=== PATIENT | female | born 1985 | race American Indian/Alaskan Native ===

== ENCOUNTER 2017-02-06 18:58 | Emergency (ER) | payer SELFPAY ==
[~2017-02-06] VITALS: Ht 170.2 cm; Wt 98.3 kg
[~2017-02-06 18:58] MED LIST: AMOX-291 PO; DOCU-30 PO; GLYB5TAB3 PO; HYDR-3240 PO; METF850T PO; OXYC5TAB3 PO
[2017-02-06 19:00] VITALS: BP 149/100
== END 2017-02-06 19:52 | disposition home or self-care (01) ==
LOC: ED 19:36
DX: K02.9 Dental caries, unspecified (principal); K05.10 Chronic gingivitis, plaque induced; E11.9 Type 2 diabetes mellitus without complications
CPT/HCPCS: 99283

== ENCOUNTER 2019-05-20 01:09 | Emergency (ER) | payer MEDICAID ==
[~2019-05-20] VITALS: Ht 167.6 cm; Wt 104.5 kg
[~2019-05-20 01:09] MED LIST changes: +DOCU-131 PO; -DOCU-30 PO
--- NOTE | 2019-05-20 01:38 | NUR ---
TASK RN: FIRST CONTACT WITH PT. PT ALERT/AWAKE, NAD NOTED. PWD. PT CO BLE EDEMA X ONE MONTH. +3 PITTING EDEMA, NOT WEEPING; NO REDNESS/WARMTH/DRAINAGE NOTED. NO OPEN WOUNDS NOTED. STRONG, EQUAL PEDAL PULSES DETECTED BY DOPPLER. PT DENIES CP/SOB/ORTHOPNEA/PRODUCTIVE COUGH/FEVER. ERP AT BEDSIDE FOR INITIAL EVAL.
--- NOTE | 2019-05-20 01:43 | NUR ---
REPORT TO MIKEL HANEY
--- NOTE | 2019-05-20 01:47 | NUR ---
RECEIVED BS REPORT FROM SARAH RN(BREAK RN) TO ASSUME PT. CARE. PT. DENIES NEEDS. CALL LIGHT IN REACH. FAMILY AT BS FOR SUPPORT.
[2019-05-20 02:02] LABS: BASOPHILS # (AUTO) 0.04 x10^3/uL (0-0.1); BASOPHILS % (AUTO) 1 % (0-1); EOSINOPHILS % (AUTO) 3 % (1-7); LYMPHOCYTES % (AUTO) 41 % (22-44); MD NO; MEAN CORPUSCULAR HEMOGLOBIN 29.1 pg (27.0-34.8); MEAN CORPUSCULAR HGB CONC 33.3 g/dL (32.4-35.8); MEAN CORPUSCULAR VOLUME 87.3 fL (80-100); MEAN PLATELET VOLUME 7.2 fL (7.4-10.4); MONOCYTES # (AUTO) 0.42 x10^3/uL (0.2-0.8); MONOCYTES % (AUTO) 5 % (2-9); NEUTROPHILS # (AUTO) 4.02 x10^3/uL (1.8-6.8); NEUTROPHILS % (AUTO) 51 % (42-75); PLATELET COUNT 323 x10^3/uL (130-400); RED BLOOD COUNT 4.48 x10^6/uL (3.82-5.3); RED CELL DISTRIBUTION WIDTH 13.3 % (9.6-15.2)
[2019-05-20 02:15] LABS: ALANINE AMINOTRANSFERASE 23 U/L (12-78); ALBUMIN 2.9 g/dL (3.4-5.0); ANION GAP 7 mmol/L (5-15); CALCIUM 8.3 mg/dL (8.5-10.1); CHLORIDE 107 mmol/L (98-107); CREATININE 0.74 mg/dL (0.55-1.02)
[2019-05-20 02:19] LABS: ALKALINE PHOSPHATASE 88 U/L (45-117); BILIRUBIN,TOTAL 0.3 mg/dL (0.2-1.0); TOTAL PROTEIN 7.1 g/dL (6.4-8.2)
[2019-05-20 02:24] LABS: HEMOGLOBIN A1C 8.4 % (4.2-6.3)
[2019-05-20 02:41] VITALS: BP 127/67
== END 2019-05-20 02:52 | disposition home or self-care (01) ==
LOC: ED 02:46
DX: E88.09 Other disorders of plasma-protein metabolism, not elsewhere classified (principal); R60.0 Localized edema; E11.65 Type 2 diabetes mellitus with hyperglycemia
CPT/HCPCS: 36415; 80053; 83036; 83880; 85025; 93970; 99284

== ENCOUNTER 2019-11-30 19:19 | Emergency (ER) | payer MEDICAID ==
[~2019-11-30] VITALS: Ht 167.6 cm; Wt 91.0 kg
[2019-11-30 19:20] VITALS: BP 125/78
[2019-11-30] MEDS ORDERED: IBUPROFEN 800 MG TABLET PO ONE (19:50)
[2019-11-30] MEDS ORDERED: AMOXICILLIN/CLAV 875-125MG TABLET PO ONE (19:50)
[2019-11-30] MEDS ORDERED: IBUPROFEN 800 MG TABLET ONE (19:59)
[2019-11-30] MEDS ORDERED: AMOXICILLIN/CLAV 875-125MG TABLET ONE (20:00)
== END 2019-11-30 20:33 | disposition home or self-care (01) ==
LOC: ED 20:10
DX: J02.0 Streptococcal pharyngitis (principal); E11.9 Type 2 diabetes mellitus without complications
CPT/HCPCS: 99283

== ENCOUNTER 2019-12-21 06:40 | Emergency (ER) | payer MEDICAID ==
[~2019-12-21] VITALS: Ht 170.2 cm; Wt 89.6 kg
--- NOTE | 2019-12-21 07:16 | NUR ---
THIS IS A 34 YO F W/ C/O SORE THROAT AND INTERMITTENT FEVERS "FOR WEEKS". PT STATES SHE WAS SEEN HERE A FEW WEEKS AGO AND DX W/ STREP (DENIES SWAB). GIVEN ABX AND NAPROXEN, TOOK FULL COURSE W/ NO RELIEF OF SYMPTOMS. ANTERIOR BASE OF THROAT IS SWOLLEN. PT REPORTS DIFFICULTY SWALLOWING SOLIDS AND LIQUIDS. PT CONVERSING IN FULL SENTENCES W/O DIFFICULTY. PT IS TACHYCARDIC W/ ALL OTHER VS WDL. NADN. SUMIT IN ROOM FOR EVAL. THROAT SWAB COMPLETED. AWAITING FURTHER ORDERS.
[2019-12-21 07:46] LABS: BASOPHILS # (AUTO) 0.07 x10^3/uL (0-0.1); BASOPHILS % (AUTO) 1 % (0-1); EOSINOPHILS # (AUTO) 0.11 x10^3/uL (0-0.4); EOSINOPHILS % (AUTO) 1 % (1-7); LYMPHOCYTES # (AUTO) 2.69 x10^3/uL (1-3.4); LYMPHOCYTES % (AUTO) 35 % (22-44); MD NO; MEAN CORPUSCULAR HEMOGLOBIN 27.7 pg (27.0-34.8); MEAN CORPUSCULAR HGB CONC 33.3 g/dL (32.4-35.8); MEAN CORPUSCULAR VOLUME 82.9 fL (80-100); MEAN PLATELET VOLUME 7.5 fL (7.4-10.4); MONOCYTES # (AUTO) 0.49 x10^3/uL (0.2-0.8); MONOCYTES % (AUTO) 6 % (2-9); NEUTROPHILS # (AUTO) 4.27 x10^3/uL (1.8-6.8); NEUTROPHILS % (AUTO) 56 % (42-75); PLATELET COUNT 321 x10^3/uL (130-400); RED BLOOD COUNT 5.03 x10^6/uL (3.82-5.3); RED CELL DISTRIBUTION WIDTH 13.6 % (9.6-15.2)
[2019-12-21 07:55] LABS: ALBUMIN 2.8 g/dL (3.4-5.0); ANION GAP 7 mmol/L (5-15); CALCIUM 8.8 mg/dL (8.5-10.1); CHLORIDE 105 mmol/L (98-107)
[2019-12-21 08:07] LABS: FREE T4 (FREE THYROXINE) 3.71 ng/dL (0.76-1.46)
[2019-12-21] MEDS ORDERED: HYDROCORTISONE 100 MG INJ. IVPush SCH ×2 (08:30→10:00)
[2019-12-21] MEDS ORDERED: HYDROCORTISONE 100 MG INJ. ONE (08:38)
--- NOTE | 2019-12-21 08:39 | NUR ---
dr alicea spoke with r
--- NOTE | 2019-12-21 08:42 | NUR ---
MEDS REQUESTED FROM PHARMACY.
[2019-12-21] MEDS ORDERED: PROPYLTHIOURACIL 50 MG TABLET PO SCH (09:00)
[2019-12-21] MEDS ORDERED: PROPRANOLOL 1 MG/ML, 1ML IVPush ONE (09:15)
--- NOTE | 2019-12-21 09:23 | NUR ---
TELEPHONE CALL TO PHARMACY REGARDING NOT SENDING THE RIGHT DOSE OF PTU. ONLY RECEIVED 1 TAB 50MG. NEED 200MG. PHARMACY REQ TO SEND BACK PTU AND WILL RESEND RIGHT DOSE.
--- NOTE | 2019-12-21 09:28 | NUR ---
CALL RECEIVED FROM PHARMACY. OUT OF STOCK OF POTASSIUM IODINE. PHARMACIST REPORTS CALLING [facility] AND NO ONE HAS IT SO IT WILL HAVE TO BE ORDRED. NOTIFIED.
[2019-12-21] MEDS ORDERED: ACETAMINOPHEN 325 MG TABLET PO PRN (10:00)
[2019-12-21] MEDS ORDERED: ONDANSETRON ODT 4 MG PO PRN (10:00)
[2019-12-21] MEDS ORDERED: DOCUSATE 100 MG CAPSULE PO PRN (10:00)
[2019-12-21] MEDS ORDERED: ONDANSETRON 2MG/ML, 2ML IVPush PRN (10:00)
[2019-12-21] MEDS ORDERED: POLYETHYLENE GLYCOL 17 GM PACKET PO PRN (10:00)
[2019-12-21] MEDS ORDERED: PROPRANOLOL 40 MG TABLET PO SCH (10:00)
[2019-12-21] MEDS ORDERED: ENOXAPARIN 30 MG/0.3 ML SQ SCH (10:00)
[2019-12-21 10:01] VITALS: BP 107/64
--- NOTE | 2019-12-21 10:01 | NUR ---
PTU GIVEN PER AND ADMITTING PROVIDER.
[2019-12-21] MEDS ORDERED: POTASSIUM IODIDE ORAL.SOLN 1 GM/ML PO ONE (10:30)
--- NOTE | 2019-12-21 10:42 | NUR ---
DIET TRAY ORDERED.
[2019-12-21] MEDS ORDERED: INSULIN LISPRO 100 UNITS/ML, PEN SQ-INSULIN SCH (11:00)
[2019-12-21] MEDS ORDERED: CHOLESTYRAMINE LIGHT 4GM PACKET PO SCH (11:00)
[2019-12-21 11:03] LABS: ALBUMIN 2.8 g/dL (3.4-5.0); BILIRUBIN, DIRECT 0.2 mg/dL (0.1-0.2)
[2019-12-21 11:05] LABS: BILIRUBIN,INDIRECT 0.4 mg/dL (0.0-2.0); BILIRUBIN,TOTAL 0.6 mg/dL (0.2-1.0); TOTAL PROTEIN 7.1 g/dL (6.4-8.2)
--- NOTE | 2019-12-21 12:26 | NUR ---
PAGED REGARD MEDS.
[2019-12-21] MEDS ORDERED: ENOXAPARIN 40 MG/0.4 ML ONE (12:28)
--- NOTE | 2019-12-21 12:30 | NUR ---
MED ZHANE FROM PHARMACY.
--- NOTE | 2019-12-21 12:48 | NUR ---
TELEPHONE CALL FROM REGARDING METHIMAZOLE. CONFIRMED TO BE GIVEN ORDERED.
--- NOTE | 2019-12-21 12:59 | NUR ---
PT MEDICATED PER EMAR.
--- NOTE | 2019-12-21 13:33 | NUR ---
PT EATING FOOD FROM HOME W/ FAMILY AT BEDSIDE. CALL LIGHT IN REACH. DENIES FURTHER NEEDS AT THIS TIME.
--- NOTE | 2019-12-21 13:43 | NUR ---
PT REQUESTING TO LEAVE. DISCUSSED WITH PT THAT SHE HAS A POTENTIAL LIFE TREATENING CONDITION AND IT IS IN HER BEST INTEREST TO STAY AND BE TREATED. PT NOT WANTING TO STAY. "I UNDERSTAND. I WANT TO LEAVE AND GO TO [place]" WHEN ASKED WHY. PT REPLIES "THEY SAID I WOULD BE ADMITTED AND I HAVENT BEEN MOVED" DISCUSSED THAT THERE IS NOT AN AVAILABLE ROOM AT THIS TIME AND SHE WILL BE MOVED SOON POSSIBLE. THAT SHE IS BEING TREATED AND RECEIVING MEDICATIONS/TREATMENTS ORDERED. ALSO DISCUSSED THAT TO GO SOMEWHERE ELSE, SHE WILL BE STARTING ALL OVER. PT VERBALIZED UNDERSTANDING, "CAN YOU TAKE THIS OUT" REFERRING TO IV. WAQAS MORIN PHONED ADMITTING MD TO NOTIFY OF PT LEAVING.
--- NOTE | 2019-12-21 13:48 | NUR ---
PT SIGNED AMA FORM. INFORMED OF CONSEQUENCES OF LEAVING AT THIS TIME. STRONGLY ADVISED TO STAY OR TO FOLLOW UP W/ CARE IMMEDIATELY. PT VERBALIZED UNDERSTANDING OF RISKS. STATES SHE MIGHT FOLLOW UP W/ GREG. PT AMBULATED W/ A STEADY GAIT. LEFT W/ FRIEND.
== END 2019-12-21 13:53 | disposition left against medical advice (07) ==
LOC: ED 09:00 → EDIP 09:54 → UNDOADMOB 09:54
DX: E05.81 Other thyrotoxicosis with thyrotoxic crisis or storm (principal); E11.9 Type 2 diabetes mellitus without complications
CPT/HCPCS: 36415; 71046; 80048; 80076; 82040; 84439; 84443; 84481; 84703; 85025; 86376; 86800; 87081; 87147; 87880; 93005; 96372; 96374; 96375; 99291; J1650; J1720; J1800

== ENCOUNTER 2020-06-11 22:08 | Emergency (ER) | payer SELFPAY ==
[~2020-06-11] VITALS: Ht 167.6 cm; Wt 80.8 kg
[2020-06-11] MEDS ORDERED: SODIUM CHLORIDE FLUSH 10ML SYR IVF ONE (22:30)
[2020-06-11] MEDS ORDERED: LORazepam 2 MG/ML, 1ML IVPush ONE (22:30)
[2020-06-11] MEDS ORDERED: SODIUM CHLORIDE 0.9% 1,000ML IVBOLUS ONE (22:30)
--- NOTE | 2020-06-11 22:30 | NUR ---
THIS IS A 34Y F THAT COMES IN TONIGHT WITH C/O THYROID PROBLEMS. PT STS SHE WAS SUPPOSED TO START IODINE THERAPY BUT HAS NOT MADE IT TO HER APTS. PT STS SHE HAS NOT TAKEN MEDS IN ABOUT 2 MONTHS. TODAY PT PRESENTS TO ER WITH HR IN 130'S REPORTS DIFFICULTY SWALLOWING BUT IS MAINTAINING OWN AIRWAY AND MANAGING SECRETIONS PT ABLE TO SPEAK IN FULL SENTENCES. CONNECTED TO MONITORING VSS NADN. CALL LIGHT IN REACH SPOUSE AT BEDSIDE
--- NOTE | 2020-06-11 22:33 | NUR ---
PIV STARTED, BLOOD SAMPLE SENT TO LAB, PT MEDICATED PER JAN 07 RIGHTS VERIFIED. NO NEEDS AT THIS TIME
[2020-06-11] MEDS ORDERED: LORazepam 2 MG/ML, 1ML ONE (22:36)
[2020-06-11 22:43] LABS: BASOPHILS # (AUTO) 0.04 x10^3/uL (0-0.1); BASOPHILS % (AUTO) 1 % (0-1); EOSINOPHILS # (AUTO) 0.05 x10^3/uL (0-0.4); EOSINOPHILS % (AUTO) 1 % (1-7); LYMPHOCYTES # (AUTO) 2.55 x10^3/uL (1-3.4); LYMPHOCYTES % (AUTO) 39 % (22-44); MD NO; MEAN CORPUSCULAR HEMOGLOBIN 27.9 pg (27.0-34.8); MEAN CORPUSCULAR HGB CONC 33.4 g/dL (32.4-35.8); MEAN CORPUSCULAR VOLUME 83.6 fL (80-100); MEAN PLATELET VOLUME 7.7 fL (7.4-10.4); MONOCYTES # (AUTO) 0.34 x10^3/uL (0.2-0.8); MONOCYTES % (AUTO) 5 % (2-9); NEUTROPHILS # (AUTO) 3.63 x10^3/uL (1.8-6.8); NEUTROPHILS % (AUTO) 55 % (42-75); PLATELET COUNT 356 x10^3/uL (130-400); RED BLOOD COUNT 5.35 x10^6/uL (3.82-5.3); RED CELL DISTRIBUTION WIDTH 13.7 % (9.6-15.2)
[2020-06-11 22:53] LABS: ALANINE AMINOTRANSFERASE 25 U/L (12-78); ALBUMIN 3.2 g/dL (3.4-5.0); ANION GAP 6 mmol/L (5-15); CHLORIDE 108 mmol/L (98-107); CREATININE 0.51 mg/dL (0.55-1.02)
[2020-06-11 22:58] LABS: ALKALINE PHOSPHATASE 198 U/L (45-117); BILIRUBIN,TOTAL 1.1 mg/dL (0.2-1.0); TOTAL PROTEIN 7.8 g/dL (6.4-8.2)
--- NOTE | 2020-06-11 23:15 | NUR ---
PT RESTING ON GURNEY EYES CLOSED RESP EVEN AND UNLABORED. PT PROVIDED WITH BLANKET REQ
[2020-06-11 23:22] LABS: FREE T4 (FREE THYROXINE) 6.22 ng/dL (0.76-1.46)
[2020-06-11] MEDS ORDERED: METHAZOLAMIDE 25 MG PO ONE (23:30)
[2020-06-11] MEDS ORDERED: METOPROLOL 1 MG/ML, 5ML IVPush ONE (23:30)
[2020-06-11] MEDS ORDERED: METOPROLOL 1 MG/ML, 5ML ONE (23:39)
--- NOTE | 2020-06-11 23:46 | NUR ---
VERIFIED RX ORDER WITH DR. LANDRUM PT BP WAS 100/57, PER ERP GIVE LOPRESSOR AND ADDITONAL 500ML OF FLUID.
[2020-06-12 00:45] VITALS: BP 119/67
== END 2020-06-12 01:01 | disposition home or self-care (01) ==
LOC: ED 06-12 00:15
DX: E11.65 Type 2 diabetes mellitus with hyperglycemia (principal); Z76.0 Encounter for issue of repeat prescription; E03.9 Hypothyroidism, unspecified; E05.01 Thyrotoxicosis with diffuse goiter with thyrotoxic crisis or storm; R00.0 Tachycardia, unspecified
CPT/HCPCS: 36415; 80053; 84439; 84443; 84481; 84703; 85025; 93005; 96361; 96374; 96375; 99284; J2060; J7030

== ENCOUNTER 2021-03-02 15:25 | Emergency (ER) | payer MEDICAID ==
[~2021-03-02] VITALS: Ht 170.2 cm; Wt 75.0 kg
[~2021-03-02 15:25] MED LIST changes: +HYDR-2214 PO; -HYDR-3240 PO; -OXYC5TAB3 PO; +OXYC5TAB98 PO
--- NOTE | 2021-03-02 15:50 | NUR ---
TASK RN: PT AMBULATED TO ROOM FROM LOBBY.
--- NOTE | 2021-03-02 16:01 | NUR ---
PT STATES SHE HAD A ABSCESS A MONTH IN THROAT. DOES NOT TAKE HER MEDICINE FOR WHAT THEY GAVE HER. PT C/O OF TROUBLE SWOLLOWING AND BELIEVE SHE HAS A ABSCESS AGAIN IN THROAT. STATES SOB DUE TO SWELLING IN THROAT. DENIES CP. ATTACHED TO MONITORS. EKG DONE HR 125
--- NOTE | 2021-03-02 16:24 | NUR ---
PT STATES NONCOMPLIANCE WITH METOPROLOL MEDICATION.
[2021-03-02] MEDS ORDERED: DEXAMETHASONE 4 MG/ML, 1ML IVPush ONE (18:00)
[2021-03-02] MEDS ORDERED: SODIUM CHLORIDE FLUSH 10ML SYR IVF ONE (18:00)
[2021-03-02] MEDS ORDERED: KETOROLAC 30 MG/1 ML IVPush ONE (18:00)
[2021-03-02] MEDS ORDERED: SODIUM CHLORIDE 0.9% 1,000ML IVBOLUS ONE (18:00)
--- NOTE | 2021-03-02 18:03 | NUR ---
BREAK RN: IV ESTABLISHED, IVF, LABS SENT
[2021-03-02] MEDS ORDERED: DEXAMETHASONE 4 MG/ML, 1ML ONE (18:17)
[2021-03-02] MEDS ORDERED: KETOROLAC 30 MG/1 ML ONE (18:17)
[2021-03-02 18:21] LABS: BASOPHILS % (AUTO) 0 % (0-1); EOSINOPHILS % (AUTO) 1 % (1-7); LYMPHOCYTES % (AUTO) 35 % (22-44); MEAN CORPUSCULAR HEMOGLOBIN 27.5 pg (27.0-34.8); MEAN CORPUSCULAR HGB CONC 33.5 g/dL (32.4-35.8); MEAN PLATELET VOLUME 7.6 fL (7.4-10.4); MONOCYTES % (AUTO) 7 % (2-9); NEUTROPHILS % (AUTO) 57 % (42-75); PLATELET COUNT 280 x10^3/uL (130-400); RED BLOOD COUNT 4.75 x10^6/uL (3.82-5.3); RED CELL DISTRIBUTION WIDTH 13.5 % (9.6-15.2)
[2021-03-02 18:22] LABS: MD NO
[2021-03-02 18:31] LABS: ALBUMIN 2.8 g/dL (3.4-5.0); ANION GAP 6 mmol/L (5-15); CALCIUM 8.7 mg/dL (8.5-10.1); CHLORIDE 106 mmol/L (98-107)
[2021-03-02 18:44] LABS: CREATININE 0.38 mg/dL (0.55-1.02); FREE T4 (FREE THYROXINE) 7.79 ng/dL (0.76-1.46)
--- NOTE | 2021-03-02 19:28 | NUR ---
PT AMBULATED TO BATHROOM AND BACK TO ROOM. ATTACHED TO MONITORS. VSS. TOLERATED WELL.
[2021-03-02 20:36] VITALS: BP 137/76
== END 2021-03-02 20:38 | disposition home or self-care (01) ==
LOC: ED 15:55
DX: J31.2 Chronic pharyngitis (principal); E11.65 Type 2 diabetes mellitus with hyperglycemia; R50.9 Fever, unspecified; E05.90 Thyrotoxicosis, unspecified without thyrotoxic crisis or storm; R00.0 Tachycardia, unspecified; F17.200 Nicotine dependence, unspecified, uncomplicated; Z72.9 Problem related to lifestyle, unspecified
CPT/HCPCS: 36415; 80048; 82040; 84439; 84443; 85025; 86308; 87081; 87147; 87880; 93005; 96361; 96374; 96375; 99285; J1100; J1885; J7030